=== PATIENT | female | born 1975 | race Caucasian/White ===

== ENCOUNTER 2017-07-03 22:23 | Emergency (ER) | payer SELFPAY ==
[2017-07-03 22:32] VITALS: BP 123/82; PULSE 107; TEMP 98.5; BMI 25.8
--- NOTE | 2017-07-03 22:59 | PDOC ---
History of Present Illness - General History Source: Patient Exam Limitations: No Limitations - History of Present Illness Initial Comments: This is a 41 YOF with unremarkable PM who p/w ingestion of unknown substance in her [employer] beer can about one hour [employer] to the ED, now with epigastric and lower abdominal pressure, mild headache, nausea, NBNB vomiting x1 episode, and mild lightheadedness. She notes having been at her nwslak-sb-obn's home and had drank about 1/2 a can of [employer] (which she opened herself and was never unsupervised by her) when she ingested what appears like some dark brown debris from inside the can. Her epigastric pressure is the most troublesome symptom though it is mild. She has never had this type of symptom before. She denies any chance she may be . She denies any drug use, tobacco use, or heavy alcohol use (states drinks only socially and had about 4 drinks yesterday, only one today). She denies chest pain, SOB, dysuria, vaginal bleeding or discharge. Her LMP was about one month ago. <Townsend,Promise - Last Filed: 07/03/17 23:32> <Faith Em - Last Filed: 07/04/17 01:10> - General Chief Complaint: Pain Stated Complaint: PAIN Time Seen by Provider: 07/03/17 22:37 Past History - Past Medical History COPD: No - Suicide/Smoking/Psychosocial Hx Smoking History: Never smoked <Promise Townsend - Last Filed: 07/03/17 23:32> <Faith Em - Last Filed: 07/04/17 01:10> - Past Medical History Allergies/Adverse Reactions: Allergies Allergy/AdvReac Type Severity Reaction Status Date / Time No Known Allergies Allergy Verified 07/03/17 22:30 Home Medications: Ambulatory Orders NK [No Known Home Medication] 07/04/17 Review of Systems - Review of Systems Able to Perform ROS?: Yes Constitutional: No: Chills, Fever, Unexplained wgt Loss HEENTM: No: Nose Congestion, Throat Pain Respiratory: No: Cough, Shortness of Breath Cardiac (ROS): Yes: Lightheadedness. No: Chest Pain, Palpitations ABD/GI: Yes: Nausea, Vomiting, Other (abdominal pain). No: Constipated, Diarrhea : No: Burning, Dysuria Musculoskeletal: No: Back Pain, Neck Pain Integumentary: No: Bruising, Rash Neurological: No: Headache, Numbness, Tingling, Weakness, Dizziness Endocrine: No: Unexplained Weight Gain, Unexplained Weight Loss <Promise Townsend - Last Filed: 07/03/17 23:32> *Physical Exam - Vital Signs Last Vital Signs Temp Pulse Resp BP Pulse Ox 98.5 F 107 H 18 123/82 100 07/03/17 22:30 07/03/17 22:30 07/03/17 22:30 07/03/17 22:30 07/03/17 22:30 - Physical Exam General Appearance: Yes: Nourished, Appropriately Dressed, Other (well appearing adult female, alert, awake, oriented, a bit irritable, answering questions appropriately). No: Apparent Distress HEENT: positive: EOMI, ANDREWS, Normal ENT Inspection, Normal Voice, Hearing Grossly Normal. negative: Scleral Icterus (R), Scleral Icterus (L), Nasal Congestion Neck: positive: Trachea midline, Supple. negative: Tender, Rigid Respiratory/Chest: positive: Lungs Clear, Normal Breath Sounds. negative: Respiratory Distress, Crackles, Rhonchi, Stridor, Wheezing Cardiovascular: positive: Regular Rhythm, Regular Rate, S1, S2. negative: Edema , JVD, Murmur Gastrointestinal/Abdominal: positive: Normal Bowel Sounds, Flat, Soft. negative : Tender, Organomegaly, Pulsatile Mass, Guarding Musculoskeletal: positive: Normal Inspection. negative: Decreased Range of Motion, Vertebral Tenderness Extremity: positive: Normal Capillary Refill, Normal Inspection, Normal Range of Motion. negative: Tender, Cyanosis Integumentary: positive: Normal Color, Dry, Warm. negative: Erythema, Rash, Bruising Neurologic: positive: sports official II-XII NML intact (grossly), Fully Oriented, Alert, Normal Mood/Affect, Normal Response, Motor Strength 5/5, Finger to Nose (normal) , Other (gait normal, no truncal ataxia on sitting, right gaze horizontal nystagmus which extinguishes after 5 beats). negative: Facial Droop, Numbness, Sensory Deficit, Confused, Disoriented <Promise Townsend - Last Filed: 07/03/17 23:32> - Vital Signs Last Vital Signs Temp Pulse Resp BP Pulse Ox 98.5 F 107 H 18 123/82 100 07/03/17 22:30 07/03/17 22:30 07/03/17 22:30 07/03/17 22:30 07/03/17 22:30 <Faith Em - Last Filed: 07/04/17 01:10> ED Treatment Course - LABORATORY CBC & Chemistry Diagram: 07/04/17 00:01 07/04/17 00:01 - ADDITIONAL ORDERS Additional order review: Laboratory Results 07/04/17 07/04/17 07/04/17 00:01 00:01 00:01 Sodium 141 Potassium 4.0 Chloride 104 Carbon Dioxide 27 Anion Gap 10 BUN 13 Creatinine 0.7 Creat Clearance w eGFR > 60 Random Glucose 98 Calcium 9.6 Total Bilirubin 0.3 AST 51 H ALT 114 H Alkaline Phosphatase 151 H Total Protein 7.6 Albumin 4.4 Lipase 172 Urine Color Urine Appearance Urine pH Ur Specific [place] Urine Protein Urine Glucose (UA) Urine Ketones Urine Blood Urine Nitrite Urine Bilirubin Urine Urobilinogen Ur Leukocyte Esterase Urine HCG, Qual Salicylates < 1.700 Opiates Screen Methadone Screen Acetaminophen < 2.000 Barbiturate Screen Phencyclidine Screen Ur Amphetamines Screen MDMA (Ecstasy) Screen Benzodiazepines Screen Cocaine Screen U Marijuana (THC) Screen Alcohol, Quantitative < 5.0 07/04/17 07/04/17 00:01 00:01 Sodium Potassium Chloride Carbon Dioxide Anion Gap BUN Creatinine Creat Clearance w eGFR Random Glucose Calcium Total Bilirubin AST ALT Alkaline Phosphatase Total Protein Albumin Lipase Urine Color Ltyellow Urine Appearance Slcloudy Urine pH 9.0 H Ur Specific [place] 1.019 Urine Protein Negative Urine Glucose (UA) Negative Urine Ketones Negative Urine Blood Negative Urine Nitrite Negative Urine Bilirubin Negative Urine Urobilinogen Negative Ur Leukocyte Esterase Negative Urine HCG, Qual Negative Salicylates Opiates Screen Negative Methadone Screen Negative Acetaminophen Barbiturate Screen Positive Phencyclidine Screen Negative Ur Amphetamines Screen Negative MDMA (Ecstasy) Screen Negative Benzodiazepines Screen Negative Cocaine Screen Negative U Marijuana (THC) Screen Negative Alcohol, Quantitative 07/04/17 00:01 RBC 4.16 MCV 88.2 MCHC 35.2 RDW 12.8 MPV 9.4 Neutrophils % 51.3 Lymphocytes % 36.6 Monocytes % 8.6 Eosinophils % 3.0 Basophils % 0.5 - Medications Given in the ED: ED Medications Discontinued Medications Generic Name Dose Route Start Last Admin Trade Name Sofia PRN Reason Stop Dose Admin Famotidine/Sodium Chloride 20 mg in 50 mls @ 100 mls/hr 07/03/17 23:45 00:10 Pepcid 20 Mg Premixed Ivpb - IVPB 07/04/17 00:14 100 mls/hr ONCE ONE Administration Sodium Chloride 1,000 ml 07/03/17 23:30 07/04/17 00:09 Normal Saline - IV 07/03/17 23:31 1,000 ml ONCE ONE Administration <Faith Em - Last Filed: 07/04/17 01:10> Medical Decision Making - Medical Decision Making Patient p/w concern for ingestion of substance she found in her beer can, now with epigastric pressure, n/v. Initial Vital Signs Temp Pulse Resp BP Pulse Ox 98.5 F 107 H 18 123/82 100 07/03/17 22:30 07/03/17 22:30 07/03/17 22:30 07/03/17 22:30 07/03/17 22:30 Exam: DDX IBNLT: Ingestion, GERD, PUD, pancreatitis, W/U ordered: UA, UCx, UDS, CBCD, CMP, Lipase, EtOH level, salicylate level, acetaminophen level, EKG TX ordered: IVF, pepcid Labs: Repeat VS: Reassessment: ADMIT The patient is unsafe for discharge at this time. They require further hospital observation, workup, and treatment. Microblog sent to [facility] for admission. Spoke with [facility], in agreement patient to be admitted to: [id number] Decision to Admit order placed to [facility] covering attending. DISCHARGE The patient has gotten significant relief of symptoms with ED medications. Workup is not concerning for emergency-level pathology at this time. The patient is appropriate for discharge with close outpatient follow up. They are comfortable with this plan and will follow up with their PCP in 1-3 days. Return precautions are discussed and they will come back to the ER if necessary. 07/03/17 23:32 <Promise Townsend - Last Filed: 07/03/17 23:32> *DC/Admit/Observation/Transfer - Discharge Dispostion Decision to Admit order: No <Promise Townsend - Last Filed: 07/03/17 23:32> <EmFaith wiseman - Last Filed: 07/04/17 01:10> Diagnosis at time of Disposition: Epigastric abdominal pain, Nausea and vomiting, Lightheaded - Discharge Dispostion Disposition: HOME Condition at time of disposition: Stable - Referrals Referrals: [facility] [place] [Provider Group] - Patient Instructions Printed Discharge Instructions: DI for Abdominal Pain-Adult Additional Instructions: You were seen in the ER for abdominal pain, nausea, vomiting, headache, lightheadedness, and possibly having ingested a substance in your drink can tonight. We did blood and urine tests and an EKG, which were all normal. After our assessment, we do not believe you are having a medical emergency at this time, and we believe you are safe to go home. Please follow up with your regular PCP doctor in 1-3 days. Call their clinic as soon as possible, tell them you were seen in the ER, and tell them you need an appointment. If you have any new or worsening symptoms, please come back to the ER at any time (24 hours a day). If you are having severe or life threatening symptoms, or symptoms that make it unsafe to drive or have someone drive you, please call 911. - Post Discharge Activity Forms/Work/School Notes: Back to Work
[2017-07-03] MEDS ORDERED: SODIUM CHLORIDE 0.9% 500 ML INFUS.BAG IV ONE (23:30)
[2017-07-03] MEDS ORDERED: FAMOTIDINE 20 MG/50 ML IVPB 20 MG/50 ML MG IVPB ONE ×2 (23:45→23:51)
--- NOTE | 2017-07-03 23:48 | PDOC ---
Attending Attestation - Resident Resident Name: Promise Townsend - ED Attending Attestation I have performed the following: I have examined & evaluated the patient, The case was reviewed & discussed with the resident, I agree w/resident's findings & plan - HPI HPI: 07/04/17 01:11 Pt was at a reunion and she opened up a [employer] beer and there was solid substance (soil/dirt) in the can. States that the beer made her ill. Pt is extrememly upset and feels unwell. - Physicial Exam PE: 07/04/17 01:12 Agree with resident exam. - Medical Decision Making 07/04/17 01:12 Labs normal. LFTs minimally elevated due to alcohol ingestion. +barbiturates inher utox. Pt's exam is normal. Some epigastric pain.Pt will follow with her PMD. <Faith Em - Last Filed: 07/04/17 01:13> Heart Score/ECG Review - ECG Intrepretation Comment:: 07/04/17 00:33 Completed 0:14:46 Sinus rhythm with 1sr degreee AV block Otherwise normal ECG Vent. rate 94 bpm FL interval 224 ms QRS duration 84 ms <Josr Gutierrez - Last Filed: 07/04/17 00:33>
[2017-07-04 00:17] LABS: BASO % 0.5 % (0-2.0); HEMATOCRIT 36.7 % (32.4-45.2); HEMOGLOBIN 12.9 GM/dL (10.7-15.3); LYMPH % 36.6 % (8-40); MCH 31.1 pg (25.7-33.7); MCHC 35.2 g/dl (32.0-36.0); MEAN CELL VOLUME 88.2 fl (80-96); MEAN PLT VOLUME 9.4 fl (7.5-11.1); MONO % 8.6 % (3.8-10.2); NEUT % 51.3 % (42.8-82.8); PLATELET COUNT 211 K/MM3 (134-434); RBC 4.16 M/mm3 (3.60-5.2); RDW 12.8 % (11.6-15.6); WHITE BLOOD COUNT 4.6 K/mm3 (4.0-10.0)
[2017-07-04 00:28] LABS: HCG,QUALITATIVE URINE NEGATIVE
[2017-07-04 00:37] LABS: LIPASE 172 U/L (73-393)
[2017-07-04 00:42] LABS: ALBUMIN 4.4 g/dl (3.4-5.0); ANION GAP 10 (8-16); BILIRUBIN,TOTAL 0.3 mg/dL (0.2-1.0); BLOOD UREA NITROGEN 13 mg/dL (7-18); CALCIUM 9.6 mg/dL (8.5-10.1); CHLORIDE 104 mmol/L (98-107); CO2 27 mmol/L (21-32); CREATININE 0.7 mg/dL (0.55-1.02); GLUCOSE,RANDOM 98 mg/dL (74-106); SGOT/AST 51 U/L (15-37); SGPT/ALT 114 U/L (12-78); SODIUM 141 mmol/L (136-145); TOT PROT 7.6 g/dl (6.4-8.2)
[2017-07-04 00:43] LABS: ALK PHOS 151 U/L (45-117)
[2017-07-04 00:56] LABS: ACETAMINOPHEN < 2.000 ug/mL; SALICYLATE < 1.700 mg/dL
[2017-07-04 00:57] LABS: URINE APPEARANCE SLCLOUDY; URINE BILIRUBIN NEGATIVE (<2.0 mg/dL); URINE COLOR LTYELLOW; URINE GLUCOSE (UA) NEGATIVE (NEGATIVE); URINE KETONE NEGATIVE (NEGATIVE); URINE LEUK ESTERASE NEGATIVE (NEGATIVE); URINE NITRITE NEGATIVE (NEGATIVE); URINE PROTEIN NEGATIVE (NEGATIVE); URINE UROBILINOGEN NEGATIVE mg/dL (0.2-1.0)
[2017-07-04 01:02] LABS: COCAINE, UR NEGATIVE ng/ml (CUTOFF=300); METHADONE, UR NEGATIVE ng/ml (CUTOFF=300); OPIATES, URI NEGATIVE ng/ml (CUTOFF=300); PHENCYCLIDINE,URINE NEGATIVE ng/ml (CUTOFF=25); URINE AMPHETAMINES NEGATIVE ng/ml (CUTOFF=500); URINE BARBITURATES POSITIVE ng/ml (CUTOFF=200); URINE BENZODIAZEPINES NEGATIVE ng/ml (CUTOFF=200)
--- NOTE | 2017-07-04 10:51 | EKG ---
Test Reason : Blood Pressure : / mmHG Vent. Rate : 094 BPM Atrial Rate : 094 BPM P-R Int : 224 ms QRS Dur : 084 ms QT Int : 354 ms P-R-T Axes : 059 074 046 degrees QTc Int : 442 ms SINUS RHYTHM WITH 1ST DEGREE A-V BLOCK OTHERWISE NORMAL ECG NO PREVIOUS ECGS AVAILABLE Confirmed by MYLA CERVANTES, CHINTAN ([id number]) on 07/04/2017 10:51:38 AM Referred By: Confirmed By:CHINTAN LANZA MD
== END 2017-07-04 01:24 | disposition home or self-care (01) ==
LOC: JER 22:23
PROC: 3E033GC Introduction of Other Therapeutic Substance into Peripheral Vein, Percutaneous Approach (ICD-10-PCS; principal; 2017-07-03)
DX: R10.13 Epigastric pain (principal); R11.2 Nausea with vomiting, unspecified
CPT/HCPCS: 36415; 80053; 80307; 81003; 83690; 84703; 85025; 87086; 93005; 93010; 99282-25